=== PATIENT | female | born 1985 | race Caucasian/White ===

== ENCOUNTER 2021-11-07 20:45 | Emergency (ER) | payer MEDICAID, OTHER ==
[2021-11-07 21:40] LABS: Absolute Neutrophil Ct (ANC) 6.64 (1.4-6.9); Basophil (Absolute #) 0.04 (0-0.4); Eosinophil % 0.7 % (0.00-5.0); Eosinophil (Absolute #) 0.06 (0-0.5); Hematocrit 40.6 % (35-47); Hemoglobin 13.2 gm/dl (12.0-16.0); Lymphocyte (Absolute #) 1.92 (1.0-4.6); Mean Cell Volume 86.6 fl (78-100); Mean Corpuscular Hemoglobin 28.1 pg (26-32); Mean Corpuscular Hgb Concent. 32.5 g/dl (32-36); Mean Platelet Volume 13.1 fl (7.5-11.0); Monocytes % 5.5 % (0.0-12.0); Neutrophil % 72.4 % (36.0-66.0); Platelet Count 272 K/mm3 (150-450); Red Blood Count 4.69 M/mm3 (4.1-5.4); Red Cell Distribution Width 13.7 % (11.5-14.0); White Blood Count 9.2 K/mm3 (4.0-10.5)
[2021-11-07 21:52] LABS: Bacteria RARE /HPF (NEGATIVE); Epithelial Cells RARE /HPF (FEW); Mucus SLIGHT /HPF (NEGATIVE); RBC 0-2 /HPF (0-2)
[2021-11-07 21:52] LABS: ACETAMINOPHEN < 10 ug/ml (10-30); ALBUMIN 4.6 g/dL (3.5-5.0); ALKALINE PHOSPHATASE 88 U/L (38-126); ANION GAP 16.6 MEQ/L (5-15); BLOOD UREA NITROGEN 7 mg/dL (7-17); CHLORIDE 101 mmol/L (98-107); Calcium 9.6 mg/dL (8.4-10.2); Carbon Dioxide 20 mmol/L (22-30); Creatinine 1 0.44 mg/dL (0.52-1.04); EST GLOMERULAR FILTRATION RATE > 60.0 ML/MIN; ETHYL ALCOHOL < 10 mg/dL (0-10); Glucose 325 mg/dL (74-106); Potassium 3.9 mmol/L (3.5-5.1); SALICYLATE < 1.0 mg/dL (2-20); SGOT/AST 35 U/L (14-36); SGPT/ALT 31 U/L (0-35); SODIUM 134 mmol/L (137-145); Total Protein 7.4 g/dL (6.3-8.2)
[2021-11-07 21:53] LABS: Appearance CLEAR (CLEAR); Bilirubin NEGATIVE (NEGATIVE); Glucose >=1000 mg/dL (NEGATIVE); Ketones SMALL-15 (NEGATIVE); Nitrite NEGATIVE (NEGATIVE); Protein,Urine Dip NEGATIVE (Negative); RBC NEGATIVE Ery/ul (0-5); Specific Gravity 1.015 (1.005-1.025); Urine Cultured Indicated? NO; Urobilinogen 0.2 mg/dL (0-1)
[2021-11-07 21:55] LABS: Dipstick done @ ? MAIN LAB
[2021-11-07 21:58] VITALS: O2SAT 98
[2021-11-07 22:04] LABS: Amphetamine,Urine NEGATIVE (NEGATIVE); Barbiturate,Urine NEGATIVE (NEGATIVE); Benzodiazepine,Urine NEGATIVE (NEGATIVE); Cocaine,Urine NEGATIVE (NEGATIVE); Methadone,Urine NEGATIVE (NEGATIVE); Opiate,Urine NEGATIVE (NEGATIVE); PCP,Urine NEGATIVE (NEGATIVE); THC,Urine NEGATIVE (NEGATIVE)
[2021-11-07 22:43] VITALS: BP 116/74
--- NOTE | 2021-11-07 23:01 | ERPHSYRPT ---
- History of Present Illness Source: patient Exam Limitations: no limitations Patient Subjective Stated Complaint: pt states she has had increased depression while on lexapro. states [facility] took her off of that and started on a new medication yesterday. Triage Nursing Assessment: pt alert and oriented, answers questions approp. pt cooperative and calm at this time. respirations nonlabored. skin warm dnd dry. Physician History: 36 yo wf w h/o Bipolar do/depression presents w suicidal ideation. Pt has seen her PCP this week and her psychiatrist 2 days ago. She states that she would take pills when asked about a plan. Timing/Duration: day(s) (3-4 days) Severity of Symptoms-Max: moderate Severity of Symptoms-Current: moderate Context related to: spouse, work Suicidal thoughts: specific plan (OD) Associated Symptoms: depressed, frustrated Previous symptoms: same symptoms as today Allergies/Adverse Reactions: buspirone [From BuSpar] Allergy (Intermediate, Verified 11/04/21 13:06) Hives sumatriptan [From Imitrex] Allergy (Intermediate, Verified 11/04/21 13:06) Tightness of Throat topiramate [From Topamax] Allergy (Intermediate, Verified 11/04/21 13:06) Hives Home Medications: Escitalopram Oxalate 10 mg [Lexapro 10 MG] 1 tab PO DAILY 11/04/21 [History] Gabapentin 100 mg [Neurontin 100 MG] 1 cap PO TID PRN 11/04/21 [History] Tizanidine HCl 1 cap PO QHS 11/04/21 [History] Asenapine Maleate [Saphris] 2.5 mg SL HS 11/07/21 [History] Insulin Glargine,Hum.rec.anlog [Basaglar Kwikpen U-100] 10 unit SQ DAILY 11/07/21 [History] Hx Tetanus, Diphtheria Vaccination/Date Given: Yes Hx Influenza Vaccination/Date Given: Yes Hx Pneumococcal Vaccination/Date Given: No Immunizations Up to Date: Yes Travel Risk - International Travel Have you traveled outside of the country in past 3 weeks: No - Coronavirus Screening Close contact with a COVID-19 positive Pt in past 14-21 Days: No - Vaccine Status Have you recieved a Covid-19 vaccination: Yes Cardiothoracic Icu Rn: ZENT - Vaccination Dates Date of 2cond Vaccination (if applicable): apr 2021 - Past Medical History Neurological History: Migraines ENT History: No Pertinent History Cardiac History: Arrhythmia Respiratory History: No Pertinent History Endocrine Medical History: Diabetes Type II Musculoskeletal History: No Pertinent History GI Medical History: No Pertinent History History: No Pertinent History, Other Psycho-Social History: Depression, Other Female Reproductive Disorders: No Pertinent History Other Medical History: PTSD. - Past Surgical History Past Surgical History: Yes Neuro Surgical History: No Pertinent History Cardiac: No Pertinent History Respiratory: No Pertinent History Gastrointestinal: Cholecystectomy Genitourinary: Kidney Surgery Musculoskeletal: No Pertinent History Female Surgical History: No Pertinent History Other Surgical History: history of kidney stones with stent - Social History Smoking Status: Never smoker Exposure to second hand smoke: No Drug Use: none Patient Lives Alone: No Significant Family History: no pertinent family hx - Female History Hx Last Menstrual Period: 3 weeks Hx Now: No - Review of Systems Constitutional: No Symptoms Eyes: No Symptoms Ears, Nose, & Throat: No Symptoms Respiratory: No Symptoms Cardiac: No Symptoms Abdominal/Gastrointestinal: No Symptoms Genitourinary Symptoms: No Symptoms Musculoskeletal: No Symptoms Skin: No Symptoms Neurological: No Symptoms Psychological: No Symptoms, Depression, Suicidal Ideations Endocrine: No Symptoms Hematologic/Lymphatic: No Symptoms Immunological/Allergic: No Symptoms - Nursing Vital Signs Nursing Vital Signs: Initial Vital Signs Temperature 97.2 F 11/07/21 20:55 Pulse Rate 82 11/07/21 20:55 Respiratory Rate 16 11/07/21 20:55 Blood Pressure 151/109 11/07/21 20:55 O2 Sat by Pulse Oximetry 96 11/07/21 20:55 Pain Scale Pain Intensity 0 - Physical Exam General Appearance: no apparent distress Eyes, Ears, Nose, Throat Exam: normal ENT inspection, TMs normal, pharynx normal, moist mucous membranes Neck Exam: normal inspection, non-tender, supple, full range of motion, No Br udzinski, No Kernig's, No meningismus, No carotid bruit Respiratory Exam: normal breath sounds, lungs clear, airway intact Cardiovascular Exam: regular rate/rhythm, normal heart sounds, normal peripheral pulses, capillary refill <2 sec, No murmur Gastrointestinal/Abdominal Exam: soft, normal bowel sounds, No tenderness Extremities Exam: normal inspection, normal range of motion Current Suicidality: has suicide plan Neurological Exam: alert, normal mood/affect, calm, assembler flexible leads II-XII nml as tested, oriented x 3, responds to pain, depressed affect Appearance: appropriate appearance, appropriate insight Behavior/Eye Contact/Speech: alert & cooperative, cooperative, good eye contact, normal speech Thoughts/Hallucinations: normal thought pattern Skin Exam: normal color, warm, dry SpO2 Interpretation: normal SpO2: 98 O2 Delivery: Room Air - Course Nursing assessment & vital signs reviewed: Yes Ordered Tests: Active Orders 24 hr Category Date Time Status ACETAMINOPHEN Stat Lab 11/07/21 21:35 Completed CBC W DIFF Stat Lab 11/07/21 21:35 Completed CMP Stat Lab 11/07/21 21:35 Completed ETHYL ALCOHOL Stat Lab 11/07/21 21:35 Completed HCG QUALITATIVE,SERUM Stat Lab 11/07/21 21:35 Completed SALICYLATE Stat Lab 11/07/21 21:35 Completed UA W/RFX CULTURE Stat Lab 11/07/21 21:16 Completed Urine Triage Profile Stat Lab 11/07/21 21:16 Completed Lab/Rad Data: Laboratory Result Diagrams 11/07/21 21:35 11/07/21 21:35 Laboratory Results 11/07/21 11/07/21 11/07/21 Range/Units 21:35 21:35 21:35 WBC 9.2 (4.0-10.5) K/mm3 RBC 4.69 (4.1-5.4) M/mm3 Hgb 13.2 (12.0-16.0) gm/dl Hct 40.6 (35-47) % MCV 86.6 (78-100) fl MCH 28.1 (26-32) pg MCHC 32.5 (32-36) g/dl RDW 13.7 (11.5-14.0) % Plt Count 272 (150-450) K/mm3 MPV 13.1 H (7.5-11.0) fl Gran % 72.4 H (36.0-66.0) % Eos # (Auto) 0.06 (0-0.5) Absolute Lymphs (auto) 1.92 (1.0-4.6) Absolute Monos (auto) 0.50 (0.0-1.3) Lymphocytes % 21.0 L (24.0-44.0) % Monocytes % 5.5 (0.0-12.0) % Eosinophils % 0.7 (0.00-5.0) % Basophils % 0.4 (0.0-0.4) % Absolute Granulocytes 6.64 (1.4-6.9) Basophils # 0.04 (0-0.4) Sodium 134 L (137-145) mmol/L Potassium 3.9 (3.5-5.1) mmol/L Chloride 101 (98-107) mmol/L Carbon Dioxide 20 L (22-30) mmol/L Anion Gap 16.6 H (5-15) MEQ/L BUN 7 (7-17) mg/dL Creatinine 0.44 L (0.52-1.04) mg/dL Estimated GFR > 60.0 ML/MIN Glucose 325 H (74-106) mg/dL Calcium 9.6 (8.4-10.2) mg/dL Total Bilirubin 1.20 (0.2-1.3) mg/dL AST 35 (14-36) U/L ALT 31 (0-35) U/L Alkaline Phosphatase 88 (38-126) U/L Serum Total Protein 7.4 (6.3-8.2) g/dL Albumin 4.6 (3.5-5.0) g/dL Serum , Qual NEGATIVE (Negative) Urinalys Dipstick Clnc Urine Color (YELLOW) Urine Appearance (CLEAR) Urine pH (5-6) Ur Specific [place] (1.005-1.025) POC Urine Protein Conf (Negative) Urine Ketones (NEGATIVE) Urine Nitrite (NEGATIVE) Urine Bilirubin (NEGATIVE) Urine Urobilinogen (0-1) mg/dL Urine Leukocytes (NEGATIVE) Urine WBC (Auto) (0-5) /HPF Urine RBC (Auto) (0-2) /HPF U Epithel Cells (Auto) (FEW) /HPF Urine Bacteria (Auto) (NEGATIVE) /HPF Urine RBC (0-5) Zaid/ul Urine Mucus (Auto) (NEGATIVE) /HPF Ur Culture Indicated? Urine Glucose (NEGATIVE) mg/dL Salicylates < 1.0 L (2-20) mg/dL Urine Opiates Level (NEGATIVE) Ur Methadone (NEGATIVE) Acetaminophen < 10 L (10-30) ug/ml Urine Barbiturates (NEGATIVE) Ur Phencyclidine (PCP) (NEGATIVE) Urine Amphetamine (NEGATIVE) U Benzodiazepine Level (NEGATIVE) Urine Cocaine (NEGATIVE) Urine Marijuana (THC) (NEGATIVE) Ethyl Alcohol < 10 (0-10) mg/dL 11/07/21 11/07/21 Range/Units 21:16 21:16 WBC (4.0-10.5) K/mm3 RBC (4.1-5.4) M/mm3 Hgb (12.0-16.0) gm/dl Hct (35-47) % MCV (78-100) fl MCH (26-32) pg MCHC (32-36) g/dl RDW (11.5-14.0) % Plt Count (150-450) K/mm3 MPV (7.5-11.0) fl Gran % (36.0-66.0) % Eos # (Auto) (0-0.5) Absolute Lymphs (auto) (1.0-4.6) Absolute Monos (auto) (0.0-1.3) Lymphocytes % (24.0-44.0) % Monocytes % (0.0-12.0) % Eosinophils % (0.00-5.0) % Basophils % (0.0-0.4) % Absolute Granulocytes (1.4-6.9) Basophils # (0-0.4) Sodium (137-145) mmol/L Potassium (3.5-5.1) mmol/L Chloride (98-107) mmol/L Carbon Dioxide (22-30) mmol/L Anion Gap (5-15) MEQ/L BUN (7-17) mg/dL Creatinine (0.52-1.04) mg/dL Estimated GFR ML/MIN Glucose (74-106) mg/dL Calcium (8.4-10.2) mg/dL Total Bilirubin (0.2-1.3) mg/dL AST (14-36) U/L ALT (0-35) U/L Alkaline Phosphatase (38-126) U/L Serum Total Protein (6.3-8.2) g/dL Albumin (3.5-5.0) g/dL Serum , Qual (Negative) Urinalys Dipstick Clnc MAIN LAB Urine Color YELLOW (YELLOW) Urine Appearance CLEAR (CLEAR) Urine pH 5.0 (5-6) Ur Specific Meade 1.015 (1.005-1.025) POC Urine Protein Conf NEGATIVE (Negative) Urine Ketones SMALL-15 (NEGATIVE) Urine Nitrite NEGATIVE (NEGATIVE) Urine Bilirubin NEGATIVE (NEGATIVE) Urine Urobilinogen 0.2 (0-1) mg/dL Urine Leukocytes NEGATIVE (NEGATIVE) Urine WBC (Auto) 3-5 (0-5) /HPF Urine RBC (Auto) 0-2 (0-2) /HPF U Epithel Cells (Auto) RARE (FEW) /HPF Urine Bacteria (Auto) RARE (NEGATIVE) /HPF Urine RBC NEGATIVE (0-5) Zaid/ul Urine Mucus (Auto) SLIGHT (NEGATIVE) /HPF Ur Culture Indicated? NO Urine Glucose >=1000 (NEGATIVE) mg/dL Salicylates (2-20) mg/dL Urine Opiates Level NEGATIVE (NEGATIVE) Ur Methadone NEGATIVE (NEGATIVE) Acetaminophen (10-30) ug/ml Urine Barbiturates NEGATIVE (NEGATIVE) Ur Phencyclidine (PCP) NEGATIVE (NEGATIVE) Urine Amphetamine NEGATIVE (NEGATIVE) U Benzodiazepine Level NEGATIVE (NEGATIVE) Urine Cocaine NEGATIVE (NEGATIVE) Urine Marijuana (THC) NEGATIVE (NEGATIVE) Ethyl Alcohol (0-10) mg/dL - Progress Progress Note: 11/08/21 00:02 [facility] consult-pt ok to go home w a safety plan Toshia Vargas AMPOULE EXAMINER conducted interview w pt. Pt told Ms Vargas that she has no current suicidal ideations. Case staffed w Zainab Bowens NP who recommended follow up with outpt services w safety plan. 11/08/21 04:18 [facility] appointment 11/25/21 11/08/21 04:20 Counseled pt/family regarding: lab results, diagnosis, need for follow-up - Departure Departure Disposition: Home Clinical Impression: Depression, Hyperglycemia Condition: Stable Critical Care Time: No Referrals: ANDRIA JORGENSEN, [Primary Care Provider] - Follow up/PCP as directed Instructions: Depression, Adult (DC), Bipolar Disorder (DC) Additional Instructions: Follow up with [facility] Return to ER as needed
[2021-11-08 01:27] VITALS: PULSE 74
== END 2021-11-08 02:06 | disposition home or self-care (01) ==
LOC: ED 20:45
DX: F32.A Depression, unspecified (principal); E11.65 Type 2 diabetes mellitus with hyperglycemia; R45.851 Suicidal ideations; Z63.0 Problems in relationship with spouse or partner; Z56.9 Unspecified problems related to employment; Z79.4 Long term (current) use of insulin; Z79.899 Other long term (current) drug therapy
CPT/HCPCS: 36415; 80053; 80307; 81015; 81025; 85025; 99284; G0480

== ENCOUNTER 2022-01-22 20:18 | Emergency (ER) | payer OTHER ==
[2022-01-22 20:45] VITALS: O2SAT 100
[2022-01-22 21:12] LABS: Epithelial Cells FEW /HPF (FEW); Mucus SLIGHT /HPF (NEGATIVE); RBC 0-2 /HPF (0-2)
[2022-01-22 21:13] LABS: Appearance CLOUDY (CLEAR)
[2022-01-22 21:14] LABS: Bilirubin NEGATIVE (NEGATIVE); Dipstick done @ ? MAIN LAB; Glucose 500 mg/dL (NEGATIVE); Ketones NEGATIVE (NEGATIVE); Nitrite NEGATIVE (NEGATIVE); Ph 5.5 (5-6); Protein,Urine Dip NEGATIVE (Negative); RBC NEGATIVE Ery/ul (0-5); Specific Gravity >=1.030 (1.005-1.025); Urobilinogen 0.2 mg/dL (0-1)
[2022-01-22 21:15] LABS: Bacteria NONE SEEN /HPF (NEGATIVE)
[2022-01-22] MEDS ORDERED: TYLENOL 325 MG PO ONE (21:15)
[2022-01-22] MEDS ORDERED: Sodium Chloride 0.9% 1000 ML 1,000 ML IV STA (21:15)
[2022-01-22 21:16] LABS: Urine Cultured Indicated? NO
[2022-01-22] MEDS ORDERED: Sodium Chloride 0.9% 1000 ML 1,000 ML ONE (21:24)
[2022-01-22] MEDS ORDERED: TYLENOL 325 MG ONE (21:24)
[2022-01-22 21:33] LABS: Absolute Neutrophil Ct (ANC) 6.34 x10^3/uL (1.4-6.9); Basophil (Absolute #) 0.05 x10^3/uL (0-0.4); Eosinophil % 2.3 % (0.00-5.0); Eosinophil (Absolute #) 0.23 x10^3/uL (0-0.5); Hematocrit 36.7 % (35-47); Hemoglobin 11.7 g/dL (12.0-16.0); Lymphocytes % 26.5 % (24.0-44.0); Mean Cell Volume 88.2 fL (78-100); Mean Corpuscular Hemoglobin 28.1 pg (26-32); Mean Corpuscular Hgb Concent. 31.9 g/dL (32-36); Mean Platelet Volume 11.8 fL (7.5-11.0); Monocyte (Absolute #) 0.55 x10^3/uL (0.0-1.3); Monocytes % 5.6 % (0.0-12.0); Neutrophil % 64.7 % (36.0-66.0); Platelet Count 287 x10^3/uL (150-450); Red Blood Count 4.16 x10^6/uL (4.1-5.4); Red Cell Distribution Width 14.9 % (11.5-14.0); White Blood Count 9.8 x10^3/uL (4.0-10.5)
[2022-01-22 21:47] LABS: ALKALINE PHOSPHATASE 69 U/L (38-126); ANION GAP 12.9 MEQ/L (5-15); BLOOD UREA NITROGEN 11 mg/dL (7-17); CHLORIDE 101 mmol/L (98-107); Calcium 9.4 mg/dL (8.4-10.2); Carbon Dioxide 24 mmol/L (22-30); EST GLOMERULAR FILTRATION RATE > 60.0 ML/MIN; Glucose 219 mg/dL (74-106); Potassium 3.5 mmol/L (3.5-5.1); SGOT/AST 18 U/L (14-36); SGPT/ALT 17 U/L (0-35); SODIUM 135 mmol/L (137-145)
--- NOTE | 2022-01-22 22:09 | ERPHSYRPT ---
- History of Present Illness Time Seen by Provider: 01/22/22 20:30 Source: patient Exam Limitations: no limitations Patient Subjective Stated Complaint: pt states " i think I am around 5 weeks and I have been having pelvic pressure for a couple days. I think it mi ght be a UTI." Triage Nursing Assessment: pt ambulatory to bed by self, pt alert and oriented x3, pt c/o pelvic pressure x2 days and burning upon urination, pt is approximately 5 weeks . pt states "I think it might be a UTI", pt denies fever, spotting, or abd cramping. Pt's OB is Dr. Mcgrath but she has not had her first appt with him yet. This is patient's 3rd pregancy Physician History: 36 years old 3 para 2 at almost 5 weeks gestation per LMP presented in the ER with chief complaint of pelvic pain dull cramping with some throbbing, intermittent for the last 2 days without any significant aggravating or relieving factors. Patient also feels constant pressure sensation with need to urinate and sense of incomplete voiding without any dysuria/hematuria. No nausea vomiting fever or chills reported. Denies any vaginal bleeding or discharge. Timing/Duration: day(s) (2), intermittent, gradual onset, worse Activites at Onset: none Quality: cramping, fullness, pressure Onset Location: pelvic pain Pain Radiation: back Severity of Pain-Max: moderate Severity of Pain-Current: mild Prior abdominal problems: none Modifying Factors: Improves With: nothing Associated Symptoms: denies symptoms Allergies/Adverse Reactions: buspirone [From BuSpar] Allergy (Intermediate, Verified 01/22/22 20:36) Hives sumatriptan [From Imitrex] Allergy (Intermediate, Verified 01/22/22 20:36) Tightness of Throat topiramate [From Topamax] Allergy (Intermediate, Verified 01/22/22 20:36) Hives Home Medications: Insulin Glargine,Hum.rec.anlog [Basaglar Kwikpen U-100] 10 unit SQ DAILY 11/07/21 [History] Hx Tetanus, Diphtheria Vaccination/Date Given: Yes Hx Influenza Vaccination/Date Given: No Hx Pneumococcal Vaccination/Date Given: No Travel Risk - International Travel Have you traveled outside of the country in past 3 weeks: No - Coronavirus Screening Are you exhibiting any of the following symptoms?: No - Vaccine Status Have you recieved a Covid-19 vaccination: Yes Tractor Operator Battery: Moderna - Vaccination Dates Date of 2cond Vaccination (if applicable): 2020 - Review of Systems Constitutional: No Symptoms Eyes: Photophobia Ears, Nose, & Throat: No Symptoms Respiratory: No Symptoms Cardiac: No Symptoms Abdominal/Gastrointestinal: No Symptoms Genitourinary Symptoms: Frequency, Musculoskeletal: No Symptoms Skin: No Symptoms Neurological: No Symptoms Psychological: No Symptoms Endocrine: No Symptoms Hematologic/Lymphatic: No Symptoms - Past Medical History Neurological History: Migraines ENT History: No Pertinent History Cardiac History: Arrhythmia Respiratory History: No Pertinent History Endocrine Medical History: Diabetes Type II Musculoskeletal History: No Pertinent History GI Medical History: No Pertinent History History: No Pertinent History, Other Psycho-Social History: Depression, Other Female Reproductive Disorders: No Pertinent History Other Medical History: PTSD. - Past Surgical History Past Surgical History: Yes Neuro Surgical History: No Pertinent History Cardiac: No Pertinent History Respiratory: No Pertinent History Gastrointestinal: Cholecystectomy Genitourinary: Kidney Surgery Musculoskeletal: No Pertinent History Female Surgical History: No Pertinent History Other Surgical History: history of kidney stones with stent - Social History Smoking Status: Former smoker Exposure to second hand smoke: No Drug Use: none Patient Lives Alone: No Significant Family History: no pertinent family hx - Female History Hx Last Menstrual Period: 12/19/2021 Hx Now: Yes - Nursing Vital Signs Nursing Vital Signs: Initial Vital Signs Temperature 97.6 F 01/22/22 20:37 Pulse Rate 96 H 01/22/22 20:37 Respiratory Rate 18 01/22/22 20:37 Blood Pressure 127/82 01/22/22 20:37 O2 Sat by Pulse Oximetry 100 01/22/22 20:37 Pain Scale Pain Intensity 5 - Physical Exam General Appearance: no apparent distress, alert Eye Exam: PERRL/EOMI Ears, Nose, Throat Exam: normal ENT inspection, TMs normal, pharynx normal, marco [address] mucous membranes Neck Exam: normal inspection, non-tender, supple, full range of motion Respiratory Exam: normal breath sounds, lungs clear Cardiovascular Exam: regular rate/rhythm, normal heart sounds Gastrointestinal/Abdomen Exam: soft, normal bowel sounds, tenderness (Mild suprapubic) Back Exam: normal inspection, normal range of motion Extremity Exam: normal inspection, normal range of motion Neurologic Exam: alert, oriented x 3, cooperative Skin Exam: normal color SpO2 Interpretation: normal SpO2: 100 O2 Delivery: Room Air Ordered Tests: Active Orders 24 hr Category Date Time Status IV Insertion STAT Care 01/22/22 21:15 Active OB <14 WKS 1ST GESTATION [US] Stat Exams 01/22/22 21:40 Ordered CBC W DIFF Stat Lab 01/22/22 21:30 Completed CMP Stat Lab 01/22/22 21:30 Completed HCG, Quantitative (Inhouse) Stat Lab 01/22/22 21:30 Completed HCG,QUALITATIVE URINE Stat Lab 01/22/22 21:19 Completed UA W/RFX CULTURE Stat Lab 01/22/22 20:59 Completed Medication Summary Discontinued Medications Generic Name Dose Route Start Last Admin Trade Name Mary PRN Reason Stop Dose Admin Acetaminophen 975 mg 01/22/22 21:15 01/22/22 21:26 Acetaminophen 325 Mg Tablet PO 01/22/22 21:16 975 mg STAT ONE Administration Acetaminophen Confirm 01/22/22 21:24 Acetaminophen 325 Mg Tablet Administered 01/22/22 21:25 Dose 975 mg .ROUTE .STK-MED ONE Sodium Chloride 1,000 mls @ 999 mls/hr 01/22/22 21:15 01/22/22 22:34 Sodium Chloride 0.9% 1000 Ml IV 01/22/22 22:15 Infused .Q1H1M STA Infusion Sodium Chloride Confirm 01/22/22 21:24 Sodium Chloride 0.9% 1000 Ml Administered 01/22/22 21:25 Dose 1,000 mls @ ud .ROUTE .STK-MED ONE Lab/Rad Data: Laboratory Result Diagrams 01/22/22 21:30 01/22/22 21:30 Laboratory Results 01/22/22 01/22/22 01/22/22 Range/Units 21:30 21:30 21:30 WBC (4.0-10.5) x10^3/uL RBC (4.1-5.4) x10^6/uL Hgb (12.0-16.0) g/dL Hct (35-47) % MCV (78-100) fL MCH (26-32) pg MCHC (32-36) g/dL RDW (11.5-14.0) % Plt Count (150-450) x10^3/uL MPV (7.5-11.0) fL Gran % (36.0-66.0) % Immature Gran % (Auto) (0.00-0.4) % Nucleat RBC Rel Count (0.00-0.1) % Eos # (Auto) (0-0.5) x10^3/uL Immature Gran # (Auto) (0.00-0.03) x10^3u/L Absolute Lymphs (auto) (1.0-4.6) x10^3/uL Absolute Monos (auto) (0.0-1.3) x10^3/uL Absolute Nucleated RBC (0.00-0.01) x10^3u/L Lymphocytes % (24.0-44.0) % Monocytes % (0.0-12.0) % Eosinophils % (0.00-5.0) % Basophils % (0.0-0.4) % Absolute Granulocytes (1.4-6.9) x10^3/uL Basophils # (0-0.4) x10^3/uL Sodium 135 L (137-145) mmol/L Potassium 3.5 (3.5-5.1) mmol/L Chloride 101 (98-107) mmol/L Carbon Dioxide 24 (22-30) mmol/L Anion Gap 12.9 (5-15) MEQ/L BUN 11 (7-17) mg/dL Creatinine 0.60 (0.52-1.04) mg/dL Estimated GFR > 60.0 ML/MIN Glucose 219 H (74-106) mg/dL Calcium 9.4 (8.4-10.2) mg/dL Total Bilirubin 0.50 (0.2-1.3) mg/dL AST 18 (14-36) U/L ALT 17 (0-35) U/L Alkaline Phosphatase 69 (38-126) U/L Serum Total Protein 7.0 (6.3-8.2) g/dL Albumin 4.0 (3.5-5.0) g/dL Beta HCG, Quant 2282.9 mIU/ml Urinalys Dipstick Clnc Urine Color (YELLOW) Urine Appearance (CLEAR) Urine pH (5-6) Ur Specific [place] (1.005-1.025) POC Urine Protein Conf (Negative) Urine Ketones (NEGATIVE) Urine Nitrite (NEGATIVE) Urine Bilirubin (NEGATIVE) Urine Urobilinogen (0-1) mg/dL Urine Leukocytes (NEGATIVE) Urine WBC (Auto) (0-5) /HPF Urine RBC (Auto) (0-2) /HPF U Epithel Cells (Auto) (FEW) /HPF Urine Bacteria (Auto) (NEGATIVE) /HPF Urine RBC (0-5) Zaid/ul Calcium Oxalate Crystal (NEGATIVE) /HPF Urine Mucus (Auto) (NEGATIVE) /HPF Ur Culture Indicated? Urine Glucose (NEGATIVE) mg/dL Urine HCG, Qual (Negative) ABO Group O Rh Factor POSITIVE Antibody Screen NEGATIVE (NEGATIVE) 01/22/22 01/22/22 01/22/22 Range/Units 21:30 21:19 20:59 WBC 9.8 (4.0-10.5) x10^3/uL RBC 4.16 (4.1-5.4) x10^6/uL Hgb 11.7 L (12.0-16.0) g/dL Hct 36.7 (35-47) % MCV 88.2 (78-100) fL MCH 28.1 (26-32) pg MCHC 31.9 L (32-36) g/dL RDW 14.9 H (11.5-14.0) % Plt Count 287 (150-450) x10^3/uL MPV 11.8 H (7.5-11.0) fL Gran % 64.7 (36.0-66.0) % Immature Gran % (Auto) 0.4 (0.00-0.4) % Nucleat RBC Rel Count 0.0 (0.00-0.1) % Eos # (Auto) 0.23 (0-0.5) x10^3/uL Immature Gran # (Auto) 0.04 H (0.00-0.03) x10^3u/L Absolute Lymphs (auto) 2.60 (1.0-4.6) x10^3/uL Absolute Monos (auto) 0.55 (0.0-1.3) x10^3/uL Absolute Nucleated RBC 0.00 (0.00-0.01) x10^3u/L Lymphocytes % 26.5 (24.0-44.0) % Monocytes % 5.6 (0.0-12.0) % Eosinophils % 2.3 (0.00-5.0) % Basophils % 0.5 (0.0-0.4) % Absolute Granulocytes 6.34 (1.4-6.9) x10^3/uL Basophils # 0.05 (0-0.4) x10^3/uL Sodium (137-145) mmol/L Potassium (3.5-5.1) mmol/L Chloride (98-107) mmol/L Carbon Dioxide (22-30) mmol/L Anion Gap (5-15) MEQ/L BUN (7-17) mg/dL Creatinine (0.52-1.04) mg/dL Estimated GFR ML/MIN Glucose (74-106) mg/dL Calcium (8.4-10.2) mg/dL Total Bilirubin (0.2-1.3) mg/dL AST (14-36) U/L ALT (0-35) U/L Alkaline Phosphatase (38-126) U/L Serum Total Protein (6.3-8.2) g/dL Albumin (3.5-5.0) g/dL Beta HCG, Quant mIU/ml Urinalys Dipstick Clnc MAIN LAB Urine Color YELLOW (YELLOW) Urine Appearance CLOUDY (CLEAR) Urine pH 5.5 (5-6) Ur Specific Cornish >=1.030 (1.005-1.025) POC Urine Protein Conf NEGATIVE (Negative) Urine Ketones NEGATIVE (NEGATIVE) Urine Nitrite NEGATIVE (NEGATIVE) Urine Bilirubin NEGATIVE (NEGATIVE) Urine Urobilinogen 0.2 (0-1) mg/dL Urine Leukocytes NEGATIVE (NEGATIVE) Urine WBC (Auto) 6-10 (0-5) /HPF Urine RBC (Auto) 0-2 (0-2) /HPF U Epithel Cells (Auto) FEW (FEW) /HPF Urine Bacteria (Auto) NONE SEEN (NEGATIVE) /HPF Urine RBC NEGATIVE (0-5) Zaid/ul Calcium Oxalate Crystal 11-25 (NEGATIVE) /HPF Urine Mucus (Auto) SLIGHT (NEGATIVE) /HPF Ur Culture Indicated? NO Urine Glucose 500 (NEGATIVE) mg/dL Urine HCG, Qual POSITIVE (Negative) ABO Group Rh Factor Antibody Screen (NEGATIVE) - Progress Progress: improved Air Movement: good Progress Note: 01/22/22 22:59 36-year-old is evaluated for pelvic pressure and increased urinary frequency. She is given fluids and Tylenol, on reevaluation feeling better. She does have UTI and given a dose of Keflex. Lab work grossly unremarkable. Ultrasound shows single IUP around 5 weeks gestation and has a fibroid which could be causing pressure symptoms. Recommended outpatient OB follow-up. Discussed s igns symptoms of worsening needing return to ER which she seems understanding. Blood Culture(s) Obtained: No Antibiotics given: Yes, No Counseled pt/family regarding: lab results, diagnosis, need for follow-up, rad results - Departure Departure Disposition: Home Clinical Impression: Pelvic pain affecting , UTI in , Fibroid uterus Condition: Stable Critical Care Time: No Referrals: ANDRIA JORGENSEN DO [Primary Care Provider] - Follow up/PCP as directed WES MCGRATH DO [ACTIVE STAFF] - Follow up/PCP as directed (Call tomorrow for reevaluation) Instructions: Uterine Fibroids (DC), Stomach Pain in Early Additional Instructions: Drink plenty of fluids. Take Tylenol as needed for pain. Pelvic rest. Follow- up with your OB for reevaluation. Return to ER for worsening pain, vaginal bleeding discharge etc. Prescriptions: Cephalexin Mh 500 mg [Keflex 500 mg] 500 mg PO TID #21 cap
[2022-01-22 22:15] VITALS: BP 114/73; PULSE 81
[2022-01-22 22:15] LABS: ABO TYPING O; Antibody Screen NEGATIVE (NEGATIVE); RH TYPING POSITIVE
[2022-01-22] MEDS ORDERED: KEFLEX 500 MG PO ONE (22:59)
[2022-01-22] MEDS ORDERED: KEFLEX 500 MG ONE (23:12)
--- NOTE | 2022-01-23 08:40 | XRAY ---
Indication: Right pelvic pain. Two-dimensional transvaginal early OB ultrasound performed. Comparison: None Uterus anteverted measuring 10.2 x 5.2 x 7.2 cm. Myometrium heterogeneous in echogenicity with a 5.0 x 4 x 6.5 cm anterior fibroid. Lower uterine segment demonstrates a few tiny nabothian cysts, largest 8 mm. Endometrial cavity demonstrates a cystic mass near the fundus, possible gestational sac. Mean sac diameter is 0.48 cm corresponding to 5 weeks 0 days. No pole/heart tones. Right ovary measures 2.3 x 3.4 x 2.7 cm with normal color perfusion. Nonvisualization left ovary. No suspicious adnexal mass or free fluid. Impression: 1. Endometrial cystic mass, possible gestational sac measuring 5 weeks 0 days. No pole/heart tones, presumed early . Correlate with serial beta hCG and follow-up sonogram regarding viability. 2. Heterogeneous uterus with anterior fibroid and a few tiny nabothian cysts. 3. Nonvisualization left ovary. Comment: Preliminary report given.
== END 2022-01-22 23:23 | disposition home or self-care (01) ==
LOC: ED 20:18
DX: O23.41 Unspecified infection of urinary tract in pregnancy, first trimester (principal); N39.0 Urinary tract infection, site not specified; Z3A.01 Less than 8 weeks gestation of pregnancy; R10.2 Pelvic and perineal pain; D25.9 Leiomyoma of uterus, unspecified; E11.9 Type 2 diabetes mellitus without complications; Z79.4 Long term (current) use of insulin
CPT/HCPCS: 36000; 36415; 76801; 80053; 81015; 81025; 84702; 85025; 86850; 86900; 86901; 96360; 99284; A9270-GY